=== PATIENT | female | born 1980 | race Caucasian/White ===

== ENCOUNTER 2024-01-11 08:05 | Emergency (ER) | payer BC, SELFPAY ==
--- NOTE | ~2024-01-11 | CT_ITS ---
EXAMINATION: CT abdomen pelvis wo con DATE: 01/11/2024 08:38 INDICATION: Left flank pain TECHNIQUE: Computed tomography (CT) of the abdomen and pelvis was performed without intravenous contr ast. Automated exposure control and iterative reconstruction technique were employed. The dose-length product was 1241.63 mGy-cm. COMPARISON: 07/13/2016 FINDINGS: Lung bases are clear. Heart size is normal. No pericardial or pleural effusion. Liver, gallbladder, s pleen, pancreas and bilateral adrenal glands are normal. Bilateral nephrolithiasis with 4 stones supriya uring up to 4 mm in the right kidney and a single 1 mm stone at the lower pole of the left kidney. Th ere is a 3-4 mm partially obstructing stone at the left ureterovesicular junction with mild left hydr oureteronephrosis. Bladder is normal. The uterus is not identified and has likely been surgically res ected. 4.3 cm left sided and 1.6 cm right-sided bilateral adnexal cysts. Moderate colonic diverticulo sis with a sigmoid predominance but without adjacent inflammatory change to suggest diverticulitis. T he bowel and appendix are normal. No free intraperitoneal gas or fluid. No pathologically enlarged ab dominal or pelvic lymphadenopathy. Mild thoracolumbar spondylosis. IMPRESSION: 1. Bilateral nephrolithiasis with at least partially obstructing 3-4 mm stone at the left ureterovesi cular junction with mild left hydroureteronephrosis. Reviewed, dictated and finalized at location B. [facility] SURGERY NURSE IMPRESSION: 1. Bilateral nephrolithiasis with at least partially obstructing 3-4 mm stone a t the left ureterovesicular junction with mild left hydroureteronephrosis.
[2024-01-11 08:09] VITALS: BP 157/110; PULSE 110; RESP 20; TEMP 36.8; O2SAT 100
[2024-01-11] MEDS: ONDANSETRON INJ 4 MG/2 ML VIAL IV PUSH (08:39)
[2024-01-11] MEDS: MORPHINE SULFATE (*CRX) 4 MG/ML INJ IV PUSH (08:49)
[2024-01-11] MEDS: SODIUM CHLORIDE 0.9% IV 1,000 ML 999 ML IV CONT ×2 (08:50→09:46)
[2024-01-11 08:53] LABS: Basophils Percent Auto 0.3 % (0.2-1.2); Eosinophils Absolute Auto 0.1 K/mm3 (0-0.3); Eosinophils Percent Auto 1.2 % (0-4.4); Hematocrit 43.8 % (37.0-47.0); Hemoglobin 14.5 g/dL (12.0-15.0); Immature Granulocyte Absolute 0.02 K/mm3 (0.00-0.031); Immature Granulocyte Percent A 0.3 % (0-0.5); Lymphocytes Absolute Auto 2.63 K/mm3 (0.9-3.2); Lymphocytes Percent Auto 38.3 % (18.3-44.2); Mean Corpuscular HGB Conc 33.1 g/dl (32-36); Mean Corpuscular Hemoglobin 29.9 pg (26-34); Mean Corpuscular Volume 90.3 fl (80-100); Mean Platelet Volume 10.1 fl (7.4-10.4); Monocytes Absolute Auto 0.6 K/mm3 (0.1-0.6); Monocytes Percent Auto 9.3 % (2.6-8.5); Neutrophils Absolute Auto 3.5 K/mm3 (1.3-6.7); Neutrophils Percent Auto 50.6 % (45.5-73.1); Platelet Count Result 315 k/mm3 (150-375); Red Blood Count 4.85 M/mm3 (4.2-5.4); Red Cell Distribution Width 12.6 % (11.5-14.5); White Blood Count 6.9 K/mm3 (4.5-10.0)
[2024-01-11 09:01] LABS: Alanine Aminotransferase 22 U/L (6-35); Alkaline Phosphatase 87 U/L (38-126); Anion Gap 7 mmol/L (8-16); Aspartate Amino Transferase 25 U/L (14-36); Bilirubin,Total 0.7 mg/dL (0.2-1.3); Blood Urea Nitrogen 16 mg/dL (7-17); Calcium 9.1 mg/dL (8.4-10.2); Carbon Dioxide 23 mmol/L (22-30); Chloride 106 mmol/L (98-107); Estimated CRCL calculation 82 ml/min; Estimated Glomerular Filt Rate > 60; Glucose 116 mg/dL (65-110); Potassium 3.2 mmol/L (3.4-5.0); Sodium 136 mmol/L (137-145)
[2024-01-11] MEDS: KETOROLAC 30 MG/ML VIAL (*BKC) IV PUSH (09:05)
[2024-01-11 09:15] LABS: Appearance Urine Turbid (Clear); Bacteria Urine 4+ /hpf; Bilirubin Urine Negative (Negative); Blood Urine Negative (Negative); Color Urine Yellow (Yellow); Glucose Urine UA Negative (Negative); Ketones Urine Trace mg/dL (Negative); Leukocyte Esterase Ur Trace LEU/UL (Negative); Mucus Urine Present /lpf; Nitrate Urine Negative (Negative); Non Pathogenic Casts 0-2; Protein Urine Trace mg/dL (Negative); RBC Urine 0-2 /hpf (0-2); Specific Grav Ur 1.022 (1.001-1.035); Squamous Epithelial Cell Urine Many /hpf (Few); Urobilinogen Urine 0.2 mg/dL (<2.0)
[2024-01-11 09:19] LABS: Add Urine Microscopic? YES
--- NOTE | 2024-01-11 09:27 | ED.BACK ---
HPI - Back Pain/Injury General Chief Complaint: Back Pain/Injury Stated Complaint: 'LEFT LOWER BACK PAIN Time Seen by Provider: 01/11/24 08:11 History of Present Illness HPI Narrative: Patient is a 43-year-old female who presents ER with left-sided flank pain. Sudden onset this morning. Associated nausea and vomiting. It is radiating around into the left abdomen. She has history of kidney stone and this feels similar. No urinary frequency urgency or dysuria. No alleviating factors. Related Data Home Medications Medication Instructions Recorded Confirmed escitalopram oxalate 10 mg tablet 10 mg PO DAILY 01/04/24 01/04/24 (Lexapro) leflunomide 20 mg tablet 20 mg PO DAILY 01/04/24 01/04/24 semaglutide 2 mg/dose (8 mg/3 mL) 2 mg subcut WEEKLY 01/04/24 01/04/24 subcutaneous pen injector (Ozempic) Allergies Allergy/AdvReac Type Severity Reaction Status Date / Time aspirin [From Percodan] Allergy Mild Shakiness Verified 01/11/24 08:19 oxycodone [From Percodan] Allergy Mild Shakiness Verified 01/11/24 08:19 acetaminophen [From Percocet] AdvReac Mild Shakiness Verified 01/11/24 08:19 METOCLOPRAMIDE HCL Allergy Mild Cramping Uncoded 01/11/24 08:19 of the Muscles Review of Systems Review of Systems: All systems reviewed & are unremarkable except as noted in HPI and below Constitutional: Constitutional: Denies chills, Denies fatigue and Denies fever(s) ENT: Reports system reviewed and no additional complaints, except as documented Cardiovascular: Cardiovascular: Reports no additional cardiovascular complaints Respiratory: Respiratory: Reports no additional respiratory complaints Gastrointestinal: Gastrointestinal: Reports abdominal pain, Denies diarrhea, Reports nausea and Reports vomiting Genitourinary: Genitourinary: Denies nocturia, Denies dysuria and Reports flank pain Musculoskeletal: Musculoskeletal: Reports no additional musculoskeletal complaints [facility] Past Medical History Medical History (Updated 01/11/24 @ 12:00 by Thomas Swenson MD) Anxiety Arthritis Kidney stones Obesity Surgical History Surgical History (Updated 01/04/24 @ 15:44 by Craleen Brasher MA) H/O laparoscopy History of dilation and curettage History of hysterectomy Hx of breast reduction, elective Family History Family History (Updated 01/04/24 @ 15:46 by Carleen Brasher MA) Grandparent Ovarian cancer Other Breast cancer Diabetes mellitus Hypertension Social History Social History (Updated 01/04/24 @ 15:46 by Carleen Brasher MA) Smoking status: Never smoker Alcohol intake: never Substance use: never Current Housing: Decline to Answer Concerned About Future Housing: Decline to Answer Difficulty Paying Gas/Electric Bills: Decline to Answer Difficulty Paying for Meds: Decline to Answer Currently Unemployed: Decline to Answer Difficulty w/ Childcare or Family Care: Decline to Answer Living arrangements: with family Occupation/Education: occupation Gender identity (if verbalized by the patient): Female Sexual Orientation (if Verbalized by the Patient): Straight or Heterosexual Exam Narrative: GENERAL: uncomfortable-appearing, well-nourished, and actively vomiting. HEAD: Normocephalic, atraumatic. EYES: PERRL and EOMI. ENT: Mucous membranes moist. NECK: Supple. CHEST: Clear to auscultation. No respiratory distress. HEART: Regular rate and rhythm. Normal peripheral pulses. ABDOMEN: Soft, nontender, nondistended. No CVA tenderness. EXTREMITIES: Normal range of motion. No edema. SKIN: Warm, dry, no rash. NEURO: Alert and oriented x3. PSYCH: Normal mood and affect. Course Course Emergency Course: Significant improvement after Toradol. Discussed case with Urology. Recommends repeating urinalysis to see if we can get a better sample. Patient nontoxic in without dysuria. Will give IV and oral antibiotic for home as well as Flomax and pain/ nausea control. [place]
[2024-01-11] MEDS: TAMSULOSIN HCL 0.4 MG CAPSULE PO (09:46)
[2024-01-11 10:09] VITALS: BP 126/87; PULSE 81; RESP 18; O2SAT 100
[2024-01-11 10:28] LABS: Appearance Urine Cloudy (Clear); Bacteria Urine 4+ /hpf; Bilirubin Urine Negative (Negative); Blood Urine Negative (Negative); Color Urine Yellow (Yellow); Glucose Urine UA Negative (Negative); Ketones Urine Trace mg/dL (Negative); Leukocyte Esterase Ur Trace LEU/UL (Negative); Mucus Urine Present /lpf; Nitrate Urine Negative (Negative); Non Pathogenic Casts 0-2; Protein Urine Negative (Negative); RBC Urine 0-2 /hpf (0-2); Specific Grav Ur 1.025 (1.001-1.035); Squamous Epithelial Cell Urine Many /hpf (Few); Urobilinogen Urine 0.2 mg/dL (<2.0); WBC Urine 21-50 /hpf; pH Urine 6.5 (5.0-9.0)
[2024-01-11 10:31] LABS: Add Urine Microscopic? YES
== END 2024-01-11 12:08 | disposition home or self-care (01) ==
PROVIDERS: Emergency Provider Emergency Medicine; PCP Family Medicine
DX: N13.2 Hydronephrosis with renal and ureteral calculous obstruction (principal); N39.0 Urinary tract infection, site not specified; E66.9 Obesity, unspecified; Z68.37 Body mass index [BMI] 37.0-37.9, adult; M19.90 Unspecified osteoarthritis, unspecified site; F41.9 Anxiety disorder, unspecified; Z87.442 Personal history of urinary calculi; Z90.710 Acquired absence of both cervix and uterus
CPT/HCPCS: 36415; 74176; 80053; 81001; 85025; 87086; 96361; 96365; 96375; 99284; A9270; J0696; J1885; J2270; J2405; J7030

== ENCOUNTER 2024-01-14 16:43 | Emergency (ER) | payer BC, SELFPAY ==
[2024-01-14 16:59] VITALS: BP 124/85; PULSE 87; RESP 16; TEMP 36.4; O2SAT 99
--- NOTE | 2024-01-14 17:12 | ED.GENADULT ---
HPI - General Adult General Chief complaint: Urogenital-Female Stated complaint: UTI/diarrhea on current antibiotic Source: patient, RN notes reviewed and old records reviewed Mode of arrival: ambulatory Limitations: no limitations History of Present Illness HPI narrative: 43-year-old female presents to [facility] with complaints of diarrhea. Patient states was seen in the ER on 01/11/2024 and diagnosed with kidney stones and UTI and started on cefuroxime, patient states took 2-3 pills but it caused nausea and diarrhea and patient states quit taking medications because she cannot tolerated. Patient states called urologist to told her he could not do anything for her. Patient states called ER and told her she would have to be seen again. Related Data Home Medications Medication Instructions Recorded Confirmed escitalopram oxalate 10 mg tablet 10 mg PO DAILY 01/04/24 01/14/24 (Lexapro) leflunomide 20 mg tablet 20 mg PO DAILY 01/04/24 01/14/24 semaglutide 2 mg/dose (8 mg/3 mL) 2 mg subcut WEEKLY 01/04/24 01/14/24 subcutaneous pen injector (Ozempic) Allergies Allergy/AdvReac Type Severity Reaction Status Date / Time aspirin [From Percodan] Allergy Mild Shakiness Verified 01/14/24 16:56 oxycodone [From Percodan] Allergy Mild Shakiness Verified 01/14/24 16:56 acetaminophen [From Percocet] AdvReac Mild Shakiness Verified 01/14/24 16:56 METOCLOPRAMIDE HCL Allergy Mild Cramping Uncoded 01/14/24 16:56 of the Muscles Review of Systems Constitutional: Constitutional: Reports no additional constitutional complaints, Denies body ache(s), Denies chills, Denies fatigue, Denies fever(s) and Denies headache(s) Eyes: Eyes: Reports no additional eye complaints and Denies blurry vision ENT: Reports system reviewed and no additional complaints, except as documented, Denies vertigo, Denies dizziness, Denies ear discharge, Denies otalgia, Denies facial pain, Denies headache(s), Denies nasal congestion, Denies nasal discharge, Denies sinus pain, Denies sinus pressure and Denies sore throat Cardiovascular: Cardiovascular: Reports no additional cardiovascular complaints, Denies chest pain, Denies chest pain at rest, Denies rapid heart rate and Denies dyspnea Respiratory: Respiratory: Reports no additional respiratory complaints, Denies chest congestion, Denies cough, Denies pain on inspiration, Denies pain with cough and Denies dyspnea Gastrointestinal: Gastrointestinal: Denies abdominal pain, Reports diarrhea, Reports nausea and Denies vomiting Integumentary/Breasts: Skin/Breast: Denies rash Neurologic: Reports system reviewed and no additional complaints, except as documented, Denies vertigo, Denies dizziness and Denies headache(s) Endocrine: Endocrine: Denies fatigue [facility] Past Medical History Medical History Anxiety Arthritis Kidney stones Obesity Surgical History Surgical History H/O laparoscopy History of dilation and curettage History of hysterectomy Hx of breast reduction, elective Family History Family History Grandparent Ovarian cancer Other Breast cancer Diabetes mellitus Hypertension Social History Social History Smoking status: Never smoker Alcohol intake: never Substance use: never Current Housing: Decline to Answer Concerned About Future Housing: Decline to Answer Difficulty Paying Gas/Electric Bills: Decline to Answer Difficulty Paying for Meds: Decline to Answer Currently Unemployed: Decline to Answer Difficulty w/ Childcare or Family Care: Decline to Answer Living arrangements: with family Occupation/Education: occupation Gender identity (if verbalized by the patient): Female Sexual Orientation (if Verbalized by the Patient): Straight or Het
== END 2024-01-14 17:25 | disposition home or self-care (01) ==
PROVIDERS: Emergency Provider Registered Nurse
DX: K52.1 Toxic gastroenteritis and colitis (principal); T36.1X5A Adverse effect of cephalosporins and other beta-lactam antibiotics, initial encounter; F41.9 Anxiety disorder, unspecified; M19.90 Unspecified osteoarthritis, unspecified site; E66.9 Obesity, unspecified; Z68.37 Body mass index [BMI] 37.0-37.9, adult
CPT/HCPCS: 81003; 99213; G0463

== ENCOUNTER 2025-06-17 09:14 | Outpatient (CLI) | payer BC, SELFPAY ==
--- NOTE | ~2025-06-17 | XR_ITS ---
XR hip LT min 2V 06/17/2025 09:43 Indication: Left hip pain Procedure: 2 views left hip Comparison: No prior studies for comparison. Findings: No fracture, subluxation or dislocation. No significant joint space narrowing. There are de generative changes of the left sacroiliac joint. There is soft tissue ossification adjacent to the le sser trochanter of the femur, likely related to prior trauma. Impression: 1: No acute bone or joint abnormality. Reviewed, dictated and finalized at location A. Impression: 1: No acute bone or joint abnormality.
--- NOTE | ~2025-06-17 | XR_ITS ---
XR sacroiliac joints min 3V 06/17/2025 09:43 Indication: Sacroiliac joint Procedure: 3 view sacroiliac joints Comparison: No prior studies for comparison. Findings: There are moderate-severe symmetric degenerative changes of the sacroiliac joints. No erosi ve changes or ankylosis. Sacral foramen are symmetric. No fracture or traumatic malalignment. 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 Reviewed, dictated and finalized at location A. 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
== END 2025-06-17 09:15 | disposition home or self-care (01) ==
LOC: MICIMG 09:15
PROVIDERS: PCP Physician Assistant; Visit Provider Nurse Practitioner Family
DX: M47.818 Spondylosis without myelopathy or radiculopathy, sacral and sacrococcygeal region (principal); M25.552 Pain in left hip
CPT/HCPCS: 72202; 73502

== ENCOUNTER 2025-07-02 09:21 | Outpatient (CLI) | payer BC, SELFPAY ==
--- NOTE | ~2025-07-02 | MR_ITS ---
MRI of the lumbar spine Clinical History: Radiculopathy Technique: Axial T2-weighted images, and sagittal T1-weighted, T2-weighted, and T2 fat-sat images were acquired. Findings: There is no fracture or subluxation of the lumbar spine. Vertebral bodies maintain normal height and alignment. No bone marrow signal abnormality seen. There are small central disc protrusion or extrusion at L1-L2. No canal stenosis or neural foraminal narrowing. At L2-L3 and L3-L4, there are minimal disc bulges with moderate facet arthropathy. No central canal stenosis or neural foraminal narrowing at these levels. At L4-L5, there is disc bulge with severe facet arthropathy. There is moderate to severe central canal stenosis. Neural foramina are preserved. At L5-S1, there is central disc protrusion with moderate facet arthropathy. There is moderate to severe spinal canal stenosis/thecal sac compression. Neural foramina are preserved. Paravertebral soft tissues are unremarkable. Impression: Moderate degenerative spondylitic changes, as above, especially at L4-L5 and L5-S1. Reviewed, dictated and finalized at [facility]. Impression: Moderate degenerative spondylitic changes, as above, especially at L4-L5 and L5 -S1.
== END 2025-07-02 09:22 | disposition home or self-care (01) ==
LOC: MICIMG 09:23
PROVIDERS: PCP Physician Assistant; Visit Provider Nurse Practitioner Family
DX: M47.26 Other spondylosis with radiculopathy, lumbar region (principal)
CPT/HCPCS: 72148

== ENCOUNTER 2025-08-11 12:49 | Emergency (ER) | payer BC, SELFPAY ==
--- NOTE | ~2025-08-11 | XR_ITS ---
Examination: XR ankle RT min 3V, XR foot RT min 3V Clinical History: RT lateral ankle pain few weeks no injury hx RA Comparison: None Technique: 4 views right ankle, 4 views right foot Findings/impression: Right ankle: 1. No acute fracture or dislocation right ankle. 2. Chronic bimalleolar avulsion fractures. 3. Soft tissue swelling lateral malleolus. Right foot: 1. No fracture or dislocation right foot. 2. Mild midfoot degenerative changes. 3. Calcaneal spur at plantar fascia insertion site. Reviewed, dictated and finalized at location R.
[2025-08-11 12:58] VITALS: BP 137/94; PULSE 101; RESP 18; TEMP 36.8; O2SAT 99
--- NOTE | 2025-08-11 13:22 | ED.LOWEXIN ---
HPI - Extremity Injury (Lower) General Chief Complaint: Extremity Injury, Lower Stated Complaint: Right Ankle Pain Time Seen by Provider: 08/11/25 13:15 Source: patient, RN notes reviewed and old records reviewed Mode of arrival: ambulatory Limitations: no limitations History of Present Illness HPI Narrative: 44 year old female who presents to [facility] with complaints of one week duration of pain to the lateral aspect of her right ankle and now also pain to bottom of right foot at her arch area. Patient reports history of Rheumatoid arthritis and does take Remicade infusions and also takes leflunomide and diclofenac to manage her RA. Patient denies any known injury to her ankle or foot states that pain is aggravated by movement and it is difficult to ambulate. Circulation sensation intact to right foot with strong pedal pulse. MD complaint: other (foot pain and lateral ankle pain) Onset (ago): week(s) (1) Severity scale (1-10): 4 Exacerbating factors: weight bearing and movement Treatments prior to arrival: other (Tramadol) Related Data Home Medications ?Medication ?Instructions ?Recorded ?Confirmed ?Last Taken ?Type escitalopram oxalate 10 mg tablet 10 mg PO DAILY 01/04/24 02/22/24 Unknown History (Lexapro) leflunomide 20 mg tablet 20 mg PO DAILY 01/04/24 02/22/24 Unknown History Remicade 08/11/25 Unknown History diclofenac sodium 75 mg mg PO 08/11/25 Unknown History tablet,delayed release Allergies Allergy/AdvReac Type Severity Reaction Status Date / Time aspirin (From Percodan) Allergy Mild Shakiness Verified 08/11/25 12:51 oxycodone (From Percodan) Allergy Mild Shakiness Verified 08/11/25 12:51 acetaminophen (From Percocet) AdvReac Mild Shakiness Verified 08/11/25 12:51 METOCLOPRAMIDE HCL Allergy Mild Cramping Uncoded 02/22/24 14:53 of the Muscles Review of Systems Review of Systems: CONSTITUTIONAL: Denies fever, chills, or sweats. EYES: Denies visual changes, redness, or discharge. ENT: Denies rhinorrhea, congestion, sore throat, or otalgia. CARDIOVASCULAR: Denies chest pain, palpitations, or edema. RESPIRATORY: Denies cough or dyspnea. GASTROINTESTINAL: Denies abdominal pain, nausea, vomiting, or diarrhea. GENITOURINARY: Denies dysuria or hematuria. SKIN: Denies rash or itching. MUSCULOSKELETAL: Denies back pain, positive for pain to right latral ankle and to arch of foot with increasing difficulty with ambulation with no known injury, or myalgia. NEUROLOGIC: Denies headache, numbness, or weakness. PSYCHIATRIC: Denies anxiety or depression. All systems reviewed & are unremarkable except as noted in HPI and below PMFSH Past Medical History Medical History Rheumatoid arthritis Kidney stones Obesity Anxiety Arthritis Surgical History Surgical History Hx of breast reduction, elective H/O laparoscopy History of dilation and curettage History of hysterectomy Family History Family History Grandparent Ovarian cancer Other Breast cancer Diabetes mellitus Hypertension Social History Social History Smoking status: Never smoker Alcohol intake: never Substance use: never Current Housing: Decline to Answer Concerned About Future Housing: Decline to Answer Difficulty Paying Gas/Electric Bills: Decline to Answer Difficulty Paying for Meds: Decline to Answer Currently Unemployed: Decline to Answer Difficulty w/ Childcare or Family Care: Decline to Answer Living arrangements: with family Occupation/Education: occupation Gender identity (if verbalized by the patient): Female Sexual Orientation (if Verbalized by the Patient): Straight or Heterosexual Comments At time of signature, agree with nursing past medical, surgical, social and family history. There is no relevant family history pertinent to the presenting complaint Exam Narrative: GENERAL: Well-appearing, well-nourished, and in some acute distress. HEAD: Normocephalic, atraumatic. EYES: PERRLA and EOMI. ENT: Nares clear, no rhinorrhea or epistaxis. Mucous membranes moist. NECK: Supple.no lymphadenopathy CHEST: Clear to auscultation. No respiratory distress.SAO2 99% on room air HEART: Regular rate and rhythm. No murmur heard. Normal peripheral pulses. ABDOMEN: Soft, nontender, nondistended, normal active bowel sounds. EXTREMITIES: Normal range of motion. Positive for right lateral ankle pain with swelling. pain to arch also of right foot which is making ambulation difficulty, reports dull to sharp pain, Circulation sensation and mobility is intact to right foot, NO reported injury has history of Rheumatoid arthritis SKIN: Warm, dry, no rash NEURO: No focal deficits. Alert and oriented x3. Course Course Emergency Course: Patient is aware of diagnosis, understands and agrees to treatment plan.? Anticipatory guidance given.? Patient agrees to follow-up as directed and is aware of reasons to seek care at the emergency department. Portions of this record may have been created with voice recognition software Level of Care: Express Care Visit Vital Signs Vital signs: Vital Signs Temperature 36.8 C 08/11/25 12:58 Pulse Rate 101 H 08/11/25 12:58 Respiratory Rate 18 08/11/25 12:58 Blood Pressure 137/94 H 08/11/25 12:58 Pulse Oximetry 99 08/11/25 12:58 Oxygen Delivery Room Air 08/11/25 12:58 Temperature 36.8 C 08/11/25 12:58 Pulse Rate 101 H 08/11/25 12:58 Respiratory Rate 18 08/11/25 12:58 Blood Pressure 137/94 H 08/11/25 12:58 Pulse Oximetry 99 08/11/25 12:58 Oxygen Delivery Room Air 08/11/25 12:58 Reviewed MDM - Extremity Injury (Lower) Differential Diagnosis Differential diagnosis: Likely ankle sprain and strain, ankle fracture and other (right foot pain, plantar fasciitis, bone spur) Medical Records Attestation: I reviewed the patient's medical records. Imaging Data Attestation: I personally reviewed and interpreted this imaging study as follows: My impression: soft tissue swelling lateral right ankle with no acute fracture or dislocation chronic bimalleolar avulsion fracture, right foot has calcaneal spur as plantar fascia insertion site with degenerative changes of right midfoot, no fractures Radiologist's impression: [facility] [place] [address] [place] [address] XRay Report Signed Patient: Norma Viera : 1980 MR#: [id number] Age: 44 Acct:[id number] Loc: [facility] ADM Date: 08/11/25Attending Dr: Ordering Physician: Maribel Olguin APRN Date of Service: 08/11/25 Procedure(s): XR ankle RT min 3V; XR foot RT min 3V Accession Number(s): [id number]; [id number] cc: Hector, Kami LEES; Maribel Olguin APRN~ Examination: XR ankle RT min 3V, XR foot RT min 3V Clinical History: RT lateral ankle pain few weeks no injury hx RA Comparison: None Technique: 4 views right ankle, 4 views right foot Findings/impression: Right ankle: 1. No acute fracture or dislocation right ankle. 2. Chronic bimalleolar avulsion fractures. 3. Soft tissue swelling lateral malleolus. Right foot: 1. No fracture or dislocation right foot. 2. Mild midfoot degenerative changes. 3. Calcaneal spur at plantar fascia insertion site. Reviewed, dictated and finalized at location R. Please be advised this is a medical document. It is intended for [id number] communication. It is written in medical language and may contain unfamiliar abbreviations or verbiage. Medical documents are intended to carry relevant information, facts as evident, and the clinical opinion of the practitioner at the time of the encounter. This report may have been done utilizing a voice recognition system. Attempts have been made to correct errors. However, there may be uncorrected grammatical, spelling, and recognition errors present. The file time of this note does not necessarily represent the time of service. Dictated By: Fernie Whiting MD 08/11/25 1341 Signed By: <Electronically signed by Fernie Whiting MD in OV> Critical Care Time Critical Care Time Critical Care Time: No Discharge Plan Discharge Clinical Impression: Calcaneal spur of right foot Ankle pain, right Qualifiers: Chronicity: acute Qualified Code(s): M25.571 - Pain in right ankle and joints of right foot Foot arch pain Qualifiers: Laterality: right Qualified Code(s): M79.671 - Pain in right foot Patient Disposition: Home Condition: Stable Instructions: Arthralgia (ED), Plantar Fasciitis Exercises (ED) Additional Instructions: Elastic wrap and postop shoe to right foot Exercises as prescribed Tylenol for lesser pain Ibuprofen regularly for the next 2-3 days for the inflammation Take pain medication that you have at home Follow-up with orthopedic surgeon or podiatry if no improvement Follow-up with PCP if further problems or concerns Ice to the area 20-30 minutes 4-6 times a day Elevate above heart If your symptoms persist, change or worsen significantly before you can contact your personal physician then please, without delay, go to the emergency department for further evaluation. Follow-up with PCP in 7-10 days or sooner if needed Follow up with PCP soon in regards to your blood pressure which is elevated above threshold for referral. Blood pressure above 120/80 may indicate pre-hypertension. 137/94 Patient Language: Bhutanese Prescriptions: No Action diclofenac sodium 75 mg tablet,delayed release (DR/EC) PO Remicade Rx Instructions: Infusion every 6 weeks leflunomide 20 mg tablet 20 mg PO DAILY escitalopram oxalate [Lexapro] 10 mg tablet 10 mg PO DAILY estradiol [Luly] 0.1 mg/24 hr patch semiweekly 1 patch transdermal 2XW Qty: 8 1RF Rx Instructions: apply 1 patch for 3 days alternating with 1 patch for 4 days each week Follow-up/Referrals: Hector,NABEEL Mcclure [Primary Care Provider, Unknown] Time of Disposition: 14:01 Quality Munith Coma Scale Eyes: Open Verbal: Oriented and Alert Motor: Follows Commands Munith Coma Total Score: 15
== END 2025-08-11 14:10 | disposition home or self-care (01) ==
PROVIDERS: Emergency Provider Registered Nurse; PCP Physician Assistant
DX: M77.31 Calcaneal spur, right foot (principal); M25.571 Pain in right ankle and joints of right foot; M79.671 Pain in right foot; M06.9 Rheumatoid arthritis, unspecified; M19.90 Unspecified osteoarthritis, unspecified site; E66.9 Obesity, unspecified; Z68.41 Body mass index [BMI] 40.0-44.9, adult; F41.9 Anxiety disorder, unspecified
CPT/HCPCS: 73610; 73630; 99213; G0463